=== PATIENT | female | born 1985 | race Caucasian/White ===

== ENCOUNTER → 2017-04-14 | Outpatient (CLI) | payer OTHER ==
--- NOTE | 2017-04-14 19:39 | US ---
EXAMINATION TYPE: US pelvic complete DATE OF EXAM: 04/14/2017 COMPARISON: NONE CLINICAL HISTORY: R10.2 Pelvic Pain. Cramping for 1 month, Mirena, no cycles since Mirena TECHNIQUE: TA Date of LMP: unknown EXAM MEASUREMENTS: Uterus: 8.5 x 4.7 x 2.9 cm Endometrial Stripe: 0.5 cm Right Ovary: 2.1 x 2.7 x 2.3 cm Left Ovary: 2.8 x 2.7 x 2.3 cm 1. Uterus: Anteverted wnl 2. Endometrium: IUD seen,wnl 3. Right Ovary: wnl 4. Left Ovary: 1.9cm complex area could represent involuting cyst versus other etiology 5. Bilateral Adnexa: wnl 6. Posterior cul-de-sac: wnl IMPRESSION: There is an IUD noted. Normal uterus. No endometrial thickening. No free fluid. Small 1 c m left ovarian cyst. No solid adnexal mass.
== END | disposition home or self-care (01) ==
LOC: RADUSMAIN 17:45
PROVIDERS: ATTEND Obstetrics & Gynecology
DX: N83.201 Unspecified ovarian cyst, right side (principal); R10.2 Pelvic and perineal pain; Z97.5 Presence of (intrauterine) contraceptive device
CPT/HCPCS: 76856

== ENCOUNTER → 2021-07-17 | Outpatient (CLI) | payer OTHER ==
--- NOTE | 2021-07-21 08:27 | MM ---
Reason for exam: screening (asymptomatic). Baseline mammogram. History: Taking hormonal contraceptives beginning at age 16. Physical Findings: Nurse did not find any significant physical abnormalities on exam. MG Screening Mammo w CAD Bilateral CC and MLO view(s) were taken. The breast tissue is extremely dense which could obscure a lesion on mammography. No significant findings. ASSESSMENT: Benign, BI-RAD 2 RECOMMENDATION: Routine screening mammogram of both breasts in 1 year.
== END | disposition home or self-care (01) ==
LOC: RADMAMWWP 14:21
PROVIDERS: ATTEND Obstetrics & Gynecology
DX: Z12.31 Encounter for screening mammogram for malignant neoplasm of breast (principal)
CPT/HCPCS: 77067

== ENCOUNTER → 2021-08-27 | Outpatient (CLI) | payer OTHER ==
--- NOTE | 2021-08-27 16:33 | EST ---
EXERCISE STRESS AGE: 36 SEX: F HT: 5'5" WT: 123 PROTOCOL: Goldy STAGE: 3 DURATION OF EXERCISE: 9:00 HEART RATE REST: 96 BLOOD PRESSURE REST: 142/106 MAXIMUM HEART RATE ACHIEVED: 182 MAXIMUM BLOOD PRESSURE: 158/91 85% MPHR: 156 100% MPHR: 183 METS: 10.3 INDICATIONS: Chest pain. CLINICAL INFORMATION: STRESS DATA: Heart rate 96, pressure 142/106 mmHg. Baseline EKG showed sinus mechanism. The patient exercised on the treadmill according to Goldy protocol for a total of 9 minutes and achieved 10.3 METS. Max heart rate was 182, which is about 99% of maximum predicted heart rate. Maximum pressure was 173/94 mmHg. Clinically the patient did not have any symptoms of chest pain or chest discomfort during the testing or on recovery. The EKG did not show any significant ST or T-wave abnormalities concerning for ischemia. CONCLUSION: 1. Excellent exercise tolerance. 2. Normal EKG in response to exercise. 3. Essentially normal stress test for the patient. MMODL / IJN: [id number] /
== END | disposition home or self-care (01) ==
LOC: RADNMMAIN 08:30
PROVIDERS: ATTEND Family Medicine
DX: R07.9 Chest pain, unspecified (principal)
CPT/HCPCS: 93017